=== PATIENT | female | born 1955 | race Caucasian/White ===

== ENCOUNTER 2019-12-25 06:45 | Inpatient (IN) ==
--- NOTE | 2019-11-20 15:13 | PAT Medication Instructions ---
Medication Instructions Date of Service November 20, 2019 Home Medications Medication Instructions Recorded albuterol sulfate 90 mcg/actuation 2 puffs INHALATION Q4H PRN #18 gm 08/22/19 aerosol inhaler calcium carbonate 500 mg calcium (1,250 mg) tablet 1,250 mg PO QAM cetirizine 10 mg tablet 10 mg PO QAM chlorthalidone 25 mg tablet 25 mg PO QAM cyanocobalamin (vitamin B-12) 500 mcg tablet 500 mcg PO QAM fluticasone furoate 200 mcg-vilanterol 25 mcg/dose inhalation powder 1 puffs INHALATION DAILY fluticasone propionate 50 mcg/actuation nasal spray,suspension 2 sprays INTRANASAL DAILY ipratropium 0.5 mg-albuterol 3 mg (2.5 mg base)/3 mL nebulization soln 1 ml INHALATION Q6H PRN levothyroxine 88 mcg tablet 88 mcg PO QAM losartan 100 mg tablet 100 mg PO QAM magnesium oxide 400 mg PO QAM multivitamin 1 tab PO DAILY simvastatin 40 mg tablet 40 mg PO QAM tiotropium bromide 18 mcg capsule with inhalation device 1 cap INHALATION DAILY amlodipine 5 mg tablet 5 mg PO QAM clindamycin HCl 300 mg capsule 300 mg PO UD cyclosporine 0.05 % eye drops in a dropperette 1 drops OP Q12H linagliptin 5 mg tablet 5 mg PO QAM omalizumab 150 mg subcutaneous solution 150 mg SQ MONTHLY omeprazole 20 mg capsule,delayed release 20 mg PO QAM albuterol sulfate 90 mcg/actuation aerosol inhaler 2 puffs INHALATION Q4H PRN insulin glargine U-300 conc [[place] SoloStar U-300 Insulin] 55 unit SUBCUT HS metformin 1,000 mg PO BID Continue as directed clindamycin HCl 300 mg capsule 300 mg PO UD (if needed prior to dental appointments) ASK your prescriber and surgeon omalizumab 150 mg subcutaneous solution 150 mg SQ MONTHLY DO NOT take the morning of surgery calcium carbonate 500 mg calcium (1,250 mg) tablet 1,250 mg PO QAM cetirizine 10 mg tablet 10 mg PO QAM chlorthalidone 25 mg tablet 25 mg PO QAM cyanocobalamin (vitamin B-12) 500 mcg tablet 500 mcg PO QAM losartan 100 mg tablet 100 mg PO QAM magnesium oxide 400 mg PO QAM multivitamin 1 tab PO DAILY linagliptin 5 mg tablet 5 mg PO QAM metformin 1,000 mg PO BID Take morning of surgery With a small sip of water, OTHERWISE NOTHING TO EAT OR DRINK AFTER MIDNIGHT: fluticasone furoate 200 mcg-vilanterol 25 mcg/dose inhalation powder 1 puffs INHALATION DAILY fluticasone propionate 50 mcg/actuation nasal spray,suspension 2 sprays INTRANASAL DAILY ipratropium 0.5 mg-albuterol 3 mg (2.5 mg base)/3 mL nebulization soln 1 ml INHALATION Q6H PRN (if needed) levothyroxine 88 mcg tablet 88 mcg PO QAM simvastatin 40 mg tablet 40 mg PO QAM tiotropium bromide 18 mcg capsule with inhalation device 1 cap INHALATION DAILY amlodipine 5 mg tablet 5 mg PO QAM cyclosporine 0.05 % eye drops in a dropperette 1 drops OP Q12H omeprazole 20 mg capsule,delayed release 20 mg PO QAM albuterol sulfate 90 mcg/actuation aerosol inhaler 2 puffs INHALATION Q4H PRN (use if needed; please bring with you to hospital day of surgery if possible) Take evening before surgery ipratropium 0.5 mg-albuterol 3 mg (2.5 mg base)/3 mL nebulization soln 1 ml INHALATION Q6H PRN (if needed) cyclosporine 0.05 % eye drops in a dropperette 1 drops OP Q12H albuterol sulfate 90 mcg/actuation aerosol inhaler 2 puffs INHALATION Q4H PRN (if needed) insulin glargine U-300 conc [[place] SoloStar U-300 Insulin] 55 unit SUBCUT HS metformin 1,000 mg PO BID Other Notes If you have any questions please call us at [phone] or [phone] or [phone] or [phone]
--- NOTE | 2019-11-22 10:23 | Anesthesiology Consultation ---
Date of Service November 22, 2019 Assessment & Plan (1) Encounter for pre-operative examination: - Patient seeing PCP prior to surgery. Awaiting office visit note ([facility]). - Per assessment on 11/20: Travel screen negative. No known COVID-19 positive contacts or current COVID-19 related symptoms. Surgeon arranging preop COVID testing. Awaiting results. - Check [facility] AM DOS Chart Review Chart Review: Patient seen in Pre Admission Testing Teaching & Discussion Pre-Anesthesia Teaching/Discussion Notes: Instructed NPO after midnight before surgery,except medications with 15 cc of water. Medication instructions provided according to the PAT guidelines. History Surgery Operation Date: 12/25/19 14:05 Proposed Procedures p Right Reversed Total Shoulder Arthroplasty - Torsten Parrish MD Height/Weight Height: 4 ft 11 in Weight: 77.7 kg Allergies Allergy/AdvReac Type Severity Reaction Status Date / Time codeine Allergy Mild Rash Verified 11/19/19 11:33 Penicillins Allergy Unknown Rash Verified 11/22/19 10:23 Sulfa (Sulfonamide Allergy Unknown Mouth Verified 11/22/19 10:23 Antibiotics) blisters Medications Home Medications Medication Instructions Recorded Confirmed Last Taken calcium carbonate 500 mg calcium 1,250 mg PO QAM tab 11/11/18 11/19/19 Unknown (1,250 mg) tablet cetirizine 10 mg tablet 10 mg PO QAM tab 11/11/18 11/19/19 Unknown chlorthalidone 25 mg tablet 25 mg PO QAM #90 tab 11/11/18 11/19/19 Unknown cyanocobalamin (vitamin B-12) 500 500 mcg PO QAM tab 11/11/18 11/19/19 Unknown mcg tablet fluticasone furoate 200 1 puffs INHALATION DAILY ea 11/11/18 11/19/19 Unknown mcg-vilanterol 25 mcg/dose inhalation powder fluticasone propionate 50 2 sprays INTRANASAL DAILY gm 11/11/18 11/19/19 Un known mcg/actuation nasal spray,suspension ipratropium 0.5 mg-albuterol 3 mg 1 ml INHALATION Q6H PRN ml 11/11/18 11/19/19 Unknown (2.5 mg base)/3 mL nebulization soln levothyroxine 88 mcg tablet 88 mcg PO QAM #90 tab 11/11/18 11/19/19 Unknown losartan 100 mg tablet 100 mg PO QAM #90 tab 11/11/18 11/19/19 Unknown magnesium oxide 400 mg PO QAM cap 11/11/18 11/19/19 Unknown multivitamin 1 tab PO DAILY 11/11/18 11/19/19 Unknown simvastatin 40 mg tablet 40 mg PO QAM #90 tab 11/11/18 11/19/19 Unknown tiotropium bromide 18 mcg capsule 1 cap INHALATION DAILY #90 puffs 11/11/18 11/19/19 Unknown with inhalation device amlodipine 5 mg tablet 5 mg PO QAM 12/05/18 11/19/19 Unknown clindamycin HCl 300 mg capsule 300 mg PO UD 12/05/18 11/19/19 Unknown cyclosporine 0.05 % eye drops in a 1 drops OP Q12H 12/05/18 11/19/19 Unknown dropperette linagliptin 5 mg tablet 5 mg PO QAM 12/05/18 11/19/19 Unknown omalizumab 150 mg subcutaneous 150 mg SQ MONTHLY ea 12/05/18 11/19/19 Unknown solution omeprazole 20 mg capsule,delayed 20 mg PO QAM 12/05/18 11/19/19 Unknown release albuterol sulfate 90 mcg/actuation 2 puffs INHALATION Q4H PRN #18 gm 08/22/19 11/19/19 Unknown aerosol inhaler insulin glargine U-300 conc 55 unit SUBCUT HS 11/19/19 11/19/19 Unknown [[place] SoloStar U-300 Insulin] metformin 1,000 mg PO BID 11/19/19 11/19/19 Unknown Past Medical History Medical History Allergic rhinitis Arthritis Chronic obstructive pulmonary disease stable Diabetes mellitus IDDM GERD (gastroesophageal reflux disease) Hyperlipidemia Hypertension Hypothyroidism Osteoarthritis Exercise / Class Metabolic Activity III < 4 Walking/Shop/Light housework Past Family History Family History Brother CHF (congestive heart failure) Mother Breast cancer Other COPD (chronic obstructive pulmonary disease) Cancer Past Surgical History Surgical History H/O arthroscopic knee surgery R/L History of breast surgery 1979 (fatty tumor excision) History of bunionectomy of left great toe with hammer toe repair History of carpal tunnel surgery left History of cataract surgery right and left History of knee replacement procedure of left knee History of knee replacement procedure of right knee History of tubal ligation Past Anesthesia History No Hx of Anesthesia Complications and No Family Hx of Anesthesia Complications History of PONV No Hx of PONV and No Hx of Motion Sickness Social History Smoking Status: Current every day smoker tobacco type: cigarettes Smoking cigarettes per day: has been tapering down use (on chantix), <1/2 PPD currently Do You Dip or Chew Tobacco: No Hx Alcohol Use: No Hx Substance Use: No substance use type: does not use Review of Systems Breathing is stable/baseline in regards to COPD. Rare wheezing. Patient denies chest pain, shortness of breath, fever, chills, cough, palpitations. Physical Exam Vital Signs VITALS BP 115/72 P 86 TEMP 98.2 SP02 98%RA RESP 16 PHYSICAL Full neck and c-spine range of motion. Full TMJ range of motion. TMD 3 finger breaths Mallampati Score 3 Dentition: upper full dentures, lower partial, possible dental extractions on lower teeth prior to surgery (patient advised to contact surgeon if dental work being done prior to surgery) Lungs: clear throughout to auscultation Cardiac: regular rate and rhythm, no murmurs noted Spine: normal Carotid arteries: negative bruit Extremities: no edema Testing Laboratory Results 11/22/19 10:59 11/22/19 10:59 PT 10.5 Seconds (9.0-12.0) 11/22/19 10:59 INR 1.0 (0.9-1.1) 11/22/19 10:59 APTT 28.7 Seconds (21.0-31.0) 11/22/19 10:59 Hemoglobin A1c 6.6 % (4.5-5.6) H 11/22/19 10:59 Urine Color Yellow 11/22/19 10:59 Urine Appearance Clear (Clear) 11/22/19 10:59 Urine pH 6.0 (4.5-7.5) 11/22/19 10:59 Ur Specific Newman 1.014 (1.000-1.030) 11/22/19 10:59 Urine Protein Negative (Negative) 11/22/19 10:59 Urine Glucose (UA) Negative (Negative) 11/22/19 10:59 Urine Ketones Negative (Negative) 11/22/19 10:59 Urine Nitrite Negative (Negative) 11/22/19 10:59 Ur Leukocyte Esterase Trace (Negative) H 11/22/19 10:59 Urine WBC (Auto) 1-5 /hpf (0-5) 11/22/19 10:59 Urine RBC (Auto) 0-4 /hpf (0-4) 11/22/19 10:59 U Hyaline Cast (Auto) 0 /lpf (0-5) 11/22/19 10:59 U Epithel Cells (Auto) 10-20 /lpf (0-5) H 11/22/19 10:59 Urine Bacteria (Auto) Negative (Negative) 11/22/19 10:59 Blood Type O Negative 11/22/19 10:59 Antibody Screen POSITIVE A 11/22/19 10:59 Amanda at blood bank aware of positive antibodies. She states nothing further needed from PAT perspective. Electrocardiogram Date: 11/22/19 Findings: + NSR @ (73) Chest X-Ray Date: 11/22/19 FINDINGS: The cardiac and mediastinal contours are normal. There is no evidence of focal pulmonary consolidation. There is no evidence of failure. No pleural effusions are visualized.[Degenerative changes are present within the cervical spine. A small surgical clip projects over the lower thoracic spinal canal. There are chronic left-sided rib deformities, possibly postsurgical. IMPRESSION: No active disease in the chest.
--- NOTE | 2019-11-22 11:26 | XRay Report ---
XR chest Pre-admission PA/Lat CLINICAL HISTORY: Preoperative chest COMPARISON STUDY: 11/29 2013 FINDINGS: The cardiac and mediastinal contours are normal. There is no evidence of focal pulmonary co nsolidation. There is no evidence of failure. No pleural effusions are visualized.[Degenerative busch es are present within the cervical spine. A small surgical clip projects over the lower thoracic spin al canal. There are chronic left-sided rib deformities, possibly postsurgical. IMPRESSION: No active disease in the chest. ACT 112: Negative or not required by law. Electronically signed by: Nacho Molina M.D. 11/22/2019 11:25 AM
[2019-11-22 12:03] LABS: Basophils # (auto) 0.04 K/uL (0-0.2); Basophils % (auto) 0.4 %; Eosinophils # (auto) 0.22 K/uL (0-0.5); Eosinophils % (auto) 2.3 %; Hematocrit (blood only) 41.9 % (37-47); Hemoglobin 13.4 g/dL (12.0-16.0); Immature Granulocytes # (auto) 0.05 K/uL (0.00-0.02); Immature Granulocytes % (auto) 0.5 %; Lymphocytes # (auto) 1.67 K/uL (1.2-3.4); Lymphocytes % (auto) 17.5 %; Mean Corpuscular Hemoglobin 28.3 pg (25-34); Mean Corpuscular Volume 88.4 fL (80-100); Mean Platelet Volume 10.8 fL (7.4-10.4); Monocytes % (auto) 6.3 %; Neutrophils # (auto) 6.99 K/uL (1.4-6.5); Platelet Count 408 K/uL (130-400); RDW Coefficient of Variation 14.2 % (11.5-14.5); RDW Standard Deviation 46.2 fL (36.4-46.3); Red Blood Count 4.74 M/uL (4.2-5.4); White Blood Count 9.57 K/uL (4.8-10.8)
[2019-11-22 12:11] LABS: Appearance Urine Clear (Clear); Bacteria Urine Automated Negative (Negative); Bilirubin Urine Negative (Negative); Blood Urine Negative (Negative); Cast Urine Automated 0 /lpf (0-5); Color Urine Yellow; Glucose Urine UA Negative (Negative); Ketones Urine Negative (Negative); Leukocyte Esterase Urine Trace (Negative); Nitrite Urine Negative (Negative); Protein Urine Negative (Negative); RBC Urine Automated 0-4 /hpf (0-4); Specific Gravity Urine 1.014 (1.000-1.030); Urobilinogen Urine Negative (Negative)
[2019-11-22 12:17] LABS: Partial Thromboplastin Time 28.7 Seconds (21.0-31.0); Prothrombin Time 10.5 Seconds (9.0-12.0)
[2019-11-22 12:23] LABS: Estimated Average Glucose 143 mg/dl; Hemoglobin A1C 6.6 % (4.5-5.6)
--- NOTE | 2019-11-22 12:48 | Electrocardiogram Report ---
Test Reason : Blood Pressure : / mmHG Vent. Rate : 073 BPM Atrial Rate : 073 BPM P-R Int : 144 ms QRS Dur : 088 ms QT Int : 398 ms P-R-T Axes : 063 048 040 degrees QTc Int : 438 ms Normal sinus rhythm Normal ECG When compared with ECG of 29-SEP-2011 12:26, Premature atrial complexes are no longer Present Confirmed by Ismael Leyva ([id number]) on 11/22/2019 12:48:23 PM Referred By: Torsten Parrish Confirmed By:Rodney Leyva
[2019-11-22 13:47] LABS: Albumin Level 4.1 gm/dl (3.4-5.0); BUN Creatinine Ratio 15.3 (10-20); Calcium 9.5 mg/dl (8.5-10.1); Creatinine Clr Calc Pharmacy 39.5 ml/min; Est GFR (African American) 51.4; Est GFR (Non-African American) 44.4; Potassium 3.6 mmol/L (3.5-5.1)
--- NOTE | 2019-12-24 19:47 | History and Physical Report ---
DATE OF ADMISSION: 12/25/2019 CHIEF COMPLAINT: Right shoulder pain. HISTORY OF PRESENT ILLNESS: This is a 64-year-old female patient of Dr. Parrish'marion complaining of chronic right shoulder pain, longstanding, now progressively getting worse. The patient has failed conservative treatment and she has been diagnosed with rotator cuff arthropathy and wishes to proceed with a right reverse total shoulder arthroplasty. PAST MEDICAL HISTORY: Hypertension, hypercholesterolemia, asthma, COPD, peripheral neuropathy, diabetes mellitus with insulin, hypothyroidism, osteoarthritis, neck problems, acid reflux, obesity, dental issues. SOCIAL HISTORY: Nonsmoker and nondrinker. PAST SURGICAL HISTORY: Left foot surgery. FAMILY HISTORY: Noncontributory. REVIEW OF SYSTEMS: Chronic right shoulder pain and weakness. Otherwise, denies any shortness of breath, chest pain, nausea, vomiting or any other joint complaints. MEDICATIONS: 1. Amlodipine 10 mg daily. 2. Cetirizine 10 mg daily. 3. Chlorthalidone 25 mg daily. 4. Clonidine 0.1 mg twice daily as needed. 5. Dulera 2 puffs twice daily in the morning and evening. 6. Nebulizer 0.5 mg as needed 4 times daily. 7. Omeprazole 40 mg daily. 8. Fluticasone 50 mcg actuation 1 spray in each nostril daily. 9. Hydrochlorothiazide 25 mg daily. 10. Levoxyl 100 mcg daily. 11. Losartan 100 mg daily. 12. Magnesium oxide 400 mg tablet daily. 13. Multivitamin daily. 14. Qvar 80 mcg actuation inhaler 2 puffs twice daily. 15. Ranitidine 150 mg twice daily. 16. Spiriva inhaler 18 mcg inhalation as needed daily. 17. Tradjenta 5 mg daily. 18. Vitamin B12 daily. 17. Xolair 150 mg subQ every 2 weeks. 18. Zocor 40 mg daily. 19. Sliding scale insulin as needed. 20. Percocet 5/325 as needed. ALLERGIES: No known drug allergies. PHYSICAL EXAMINATION: GENERAL: Well-developed, well-nourished 64-year-old female in no acute distress. She is alert and oriented x3 and pleasant. HEENT: Normocephalic, atraumatic. Extraocular motions are intact. Pupils are equal and reactive to light. HEART: Regular rate and rhythm, no murmurs. LUNGS: Clear. ABDOMEN: Soft, nontender, bowel sounds present. EXTREMITIES: Right shoulder, 3/5 strength globally. Neurologically and neurovascularly intact. Active range of motion to 90 degrees, passively to 180 with crepitation and pain. DIAGNOSES: Right shoulder rotator cuff arthropathy, hypertension, hypercholesterolemia, asthma, chronic obstructive pulmonary disease, peripheral neuropathy, diabetes mellitus with insulin, hypothyroidism, osteoarthritis, back problems, acid reflux, obesity, dental issues. PLAN: The patient was advised of her diagnosis. Indications, risks, benefits, postop course have all been reviewed. The patient wished to proceed with a right reverse total shoulder arthroplasty. Necessary consent forms, preoperative testing and clearances will be obtained. ROSCOE
[~2019-12-25 06:45] MED LIST: ACETAMINOPHEN 500 MG TAB PO SCH; FAMOTIDINE 20 MG TAB PO SCH; GABAPENTIN 300 MG CAP PO SCH; LR 15ML/HR IV SCH; LR 500ML BOLUS IV SCH; METOCLOPRAMIDE HCL 10 MG TABLET PO SCH; VANCOMYCIN HCL 1,250 MG in SODIUM CHLORIDE 0.9% 250 ML IV SCH; dexAMETHasone 4 MG TAB PO SCH
[2019-12-25] MEDS ORDERED: ROPIVACAINE 0.5% 5 MG/ML 30 ML VIAL ONE (07:35)
[2019-12-25] MEDS ORDERED: fentaNYL citrate 100 MCG/2 ML VIAL ONE (08:13)
[2019-12-25] MEDS ORDERED: MIDAZOLAM HCL 1 MG/ML 2ML VIAL ONE (08:13)
[2019-12-25] MEDS ORDERED: PROPOFOL IV EMULSION 10 MG/ML 20 ML VIAL IV ONE (08:13)
[2019-12-25] MEDS ORDERED: LIDOCAINE HCL 2% 2 ML VIAL/AMP(20MG/ML) INFIL ONE (08:13)
[2019-12-25] MEDS ORDERED: ONDANSETRON INJ 2 MG/ML 2 ML VIAL IV PRN ×2 (09:05→14:30)
[2019-12-25] MEDS ORDERED: ePHEDrine sulfate 50 MG/ML AMP IV PRN (09:05)
[2019-12-25] MEDS ORDERED: ALBUT/IPRATROP 3MG/0.5MG NEB 3 ML VIAL NEB STA ×2 (09:05→15:30)
[2019-12-25] MEDS ORDERED: ATROPINE SULFATE 0.1 MG/ML 10ML SYR IV PRN (09:05)
[2019-12-25] MEDS ORDERED: fentaNYL citrate 100 MCG/2 ML VIAL IV PRN (09:05)
[2019-12-25] MEDS ORDERED: ALBUT/IPRATROP 3MG/0.5MG NEB 3 ML VIAL ONE (09:16)
--- NOTE | 2019-12-25 09:21 | History & Physical Bridge Note ---
Date of Service December 25, 2019 History & Physical Bridge Note I have examined the patient, reviewed the History & Physical and in the interval since the performance of the History & Physical I have noted the following changes of clinical significance: no changes noted
[2019-12-25] MEDS ORDERED: BACITRACIN INJ 50,000 UNIT VIAL ONE (09:29)
[2019-12-25] MEDS ORDERED: ONDANSETRON INJ 2 MG/ML 2 ML VIAL ONE (10:41)
[2019-12-25] MEDS ORDERED: PHENYLEPHRINE 100MCG/ML 5ML SYR ONE (10:41)
[2019-12-25] MEDS ORDERED: GLYCOPYRROLATE 0.2 MG/ML VIAL ONE (10:42)
[2019-12-25] MEDS ORDERED: NEOSTIGMINE METHYLSULFATE 5 MG/5 ML SYR ONE (10:42)
[2019-12-25] MEDS ORDERED: ROCURONIUM BROMIDE 10 MG/ML 5 ML VIAL IV ONE (10:42)
--- NOTE | 2019-12-25 12:59 | Post Operative Brief Note ---
Immediate Post Op Note v1 Date of Surgery December 25, 2019 Pre & Post Diagnosis Operation Date: 12/25/19 09:00 Pre-Op Diagnosis: Right Shoulder Rotator Cuff Arthropathy Post-Op Diagnosis: Right Shoulder Rotator Cuff Arthropathy, proximal biceps rupture biceps tendinopathy I identified the patient and participated in the time-out.: Yes Procedure Operation Date: 12/25/19 09:00 Actual Procedures: Right Reversed Total Shoulder Arthroplasty, biceps tenodesis- Torsten Parrish MD Surgeon Torsten Parrish MD Claims Adjudicator NEGRITA Bernard Estimated Blood Loss 50 Findings Consistent with Post-Op Diagnosis Specimens Humeral head Drains Hemovac Drain Anesthesia Type General Regional Complications none Disposition Accompanied Patient To Recovery: No Disposition: Recovery Room Overlapping Procedure I was immediately available: during the entire case.
--- NOTE | 2019-12-25 13:25 | Operative Report ---
Post Operative Report Pre & Post Diagnosis Operation Date: 12/25/19 09:00 Pre-Op Diagnosis: Right Shoulder Rotator Cuff Arthropathy, multiple osteochondromatosis Post-Op Diagnosis: Right Shoulder Rotator Cuff Arthropathy, multiple osteochondromatosis, proximal biceps rupture biceps tendinopathy I identified the patient and participated in the time-out.: Yes Procedure Operation Date: 12/25/19 09:00 Actual Procedures Right Reversed Total Shoulder Arthroplasty, biceps tenodesis- Torsten Parrish MD Surgeon Torsten Parrish MD Sloop Captain NEGRITA Bernard Estimated Blood Loss 50 Findings Consistent with Post-Op Diagnosis Specimens Humeral head Drains 2 Hemovac Anesthesia Type General Regional Complications none Disposition Accompanied Patient To Recovery: No Indications 64-year-old female with multiple osteochondromatosis multiple arthritic joints including the right shoulder which also has a large rotator cuff tear proximal migration humerus as well as bone loss of the glenoid superiorly, posteriorly and undersurface acromial [id number] wear. Patient has failed conservative management. Description of Procedure The patient was taken to the operating room and anesthetized under regional block and general anesthetic. The patient was positioned on the operating table in a 30 beachchair position with a towel roll under the medial border of the right scapula. The arm was draped free to be able to manipulate the shoulder as needed. The right upper extremity was prepped and draped in usual sterile fashion. Exam demonstrated moderate obesity with forward flexion 170 degrees abduction 100 degrees external rotation 80 degrees. ( Preop examined holding area demonstrated 120 degrees active forward elevation 80 degrees abduction and 80 degrees external rotation. Obvious rotator cuff weakness.) An anterior deltopectoral approach was performed. A longitudinal incision was made in the deltopectoral interval. The skin was incised sharply. Subcutaneous flaps were elevated off the fascia. The cephalic vein was dissected out and retracted lateral with the deltoid. The clavipectoral fascia was divided at the lateral margin of the conjoined tendon and extended up to the CA ligament. The following findings were noted: There was chronic thickened bursa over the subscapularis tendon which was thin and had tendinopathy. The supraspinatus and infraspinatus were torn and retracted and was a large bursal sac with abundant fluid. The biceps tendon at torn proximally with there was a redundant piece of tendon tissue in the bicipital groove attached to chronic tenosynovium that was scarred down to the tendon. There were bone spurs over the greater tuberosity and lesser tuberosity and some anterior and anterior lateral acromial spurs on the undersurface of the acromion process.. The upper centimeter of the pectoralis was released for inferior exposure. The biceps tendon was freed up from the surrounding chronic tenosynovium and the tenosynovium was resected. I was able to mobilize the biceps so that could be retracted proximally and tenodesed to the pectoralis tendon. The biceps tendon was tenodesed to the pectoralis tendon with #2 FiberWire. The proximal biceps was resected. The subscapularis tendon was taken down off the lesser tuberosity using a subperiosteal dissection. A #1 Vicryl traction suture was placed into the free end of the subscapularis tendon and capsule. The subscapular muscle fibers were split longitudinally at the level of the circumflex vessels. The circumflex vessels were identified and tied off with silk ties and divided laterally. A Kitner elevator was used to free up the inferior fibers of the subscapularis off of the capsule. The axillary nerve was identified with a tug test and protected with a blunt Maldonado retractor between the nerve and the capsule. A subperiosteal dissection was performed along the neck of the humerus as the arm was gradually externally rotated exposing the humeral head. There were no major inferior osteophytes that had to be resected. A Rice elevator was used to assist in releasing the capsule of the neck of the humerus. The capsule was divided with Bray scissors down to the glenoid released off the anterior glenoid and the rotator interval was released to meet the capsular release and a 360 release of the subscapularis was accomplished. Humeral head was completely exposed bone in the central to superior region with the some surrounding gradual chondromalacia and some osteophytes more along the greater and lesser tuberosity areas. A Fukuda retractor was placed into the joint retracting the humeral head posterior. Glenoid findings demonstrated grade 4 glenoid wear with bone loss superior to posterior superior with resultant superior inclination of the glenoid and medialization of the center of rotation due to bone loss.. The labrum was resected. an anterior-inferior and posterior inferior capsular release were performed with electrocautery and a Rice elevator on bone with the axillary nerve protected inferiorly by the retractor. Attention was then taken to the humeral preparation. The cutting guide was placed into the humeral head. It was positioned at 20 of retroversion. Oscillating saw was used to resect the humeral head giving the cut above the level of the posterior rotator cuff insertion site. There is a large cyst in the cancellous bone in the central region extending into the greater tuberosity region. This appeared to be benign degenerative cyst and was curetted out. The humerus was then prepared for the stem. I used the ascend flex stem from [employer]. The sizing broaches were used followed by trial broaches up to a size 2B long which had the appropriate fit and fill. The appropriate sized cut protector was placed. The humerus was then retracted posterior to the glenoid. The glenoid was sized for a 15 degree full wedge 25 mm perform glenoid based on blueprint CT scan guided preop templating with a custom guide created for pin placement.. The PSI guide was positioned and the central drill hole was made. The initial central reamer was used followed by the 15 degree angled reamer which was positioned posterior superior at the area of the most significant bone loss. Reaming was performed to I had full contact. There was some subchondral cysts that were curetted out. The reamer for the central boss was used. The depth gauge was used to measure for the central screw. A tap was used. Bone grafting humeral head was placed into the cystic areas on the glenoid and superiorly between the maximum wedge and the superior area of maximum bone loss to enhance good solid contact. The 25 mm 15 degree full wedge performed baseplate with a 30 mm by 6.5 central screw baseplate was screwed into position placed in the wedge in the superior to posterior position.. The base plate was transfixed with a compression screw superiorly followed by inferior anterior and posterior locking screws. The fan reamer was was not needed due to the lateral offset of the wedge. After irrigation the 39 standard Tornier glenoid sphere was impacted onto the basep late and the security screw was tightened. Attention was taken back to the humerus. The cut protector was removed and the +0 high offset humeral tray trial was assembled to the trial stem rotated appropriately to get bony coverage and then screwed in position. A trial reduction was performed. A 39+6 reversed trial insert demonstrated good stability and no shuck. I did have to trim some spurs off the greater tuberosity and remove the spurs on the undersurface the acromion 7 the arm was in 90 degrees of abduction and with internal and external rotation there was no greater tuberosity impingement on the acromion. The trials were removed. 3 drill holes are made into the harder bone in the bicipital groove area and 3 #5 FiberWire sutures were placed transosseously. The canal was irrigated with antibiotic solution with bacitracin. The final component was assembled. The final component was the Tornier 2B long ascend flex stem assembled to the plus 0 high offset tray and a 39, +6 reversed insert polyethylene. After irrigation of the canal, the cyst areas were bone grafted from bone graft from the humeral head and the stem was inserted partially and more bone graft was placed around the stem after which it was then impacted into the humerus with a tight press-fit. It was reduced to the glenoid sphere. Stability was verified. Subscapularis was repaired with the #5 FiberWire sutures using Cristhian-Qasim suture technique. Lateral row soft tissue repair was performed with #2 FiberWire [id number] sutures. The pectoralis was repaired with #2 FiberWire [id number] sutures reinforcing the biceps tendon tenodesis. The arm was taken through a range of motion which demonstrated 150 degrees forward elevation 100 degrees abduction external rotation 50 degrees without tension on subscap repair. The implant was stable through the range of motion tested. The wound was copiously irrigated. 2 Hemovac drains were placed. The deltopectoral interval was closed with [id number] #1 Vicryl sutures. The subcutaneous tissues were closed with 2-0 Vicryl sutures. The skin was closed with juwan. Sterile dressings were applied and a shoulder immobilizer. NEGRITA Bernard my physician press operator assistant assisted in the procedure to the entire procedure including patient positioning arm positioning prepping and draping soft tissue retraction instrument management suture management and performed the subcutaneous and skin closure and will participate in the postoperative care of the patient. I attest to the content of the Intraoperative Record and any orders documented therein. Any exceptions are noted below.
--- NOTE | 2019-12-25 13:49 | Anesthesiology Progress Note ---
Date of Service December 25, 2019 Anesthesia Post Procedure Vital Signs Vital Signs: Temp Pulse Pulse Resp BP Pulse Ox 12/25/19 13:25 92 H 15 126/72 95 12/25/19 13:15 96 H 18 125/66 99 12/25/19 13:06 36.5 C 100 H 20 133/72 99 12/25/19 09:21 83 16 96 12/25/19 07:58 36.7 C 78 18 116/61 95 12/25/19 07:24 37.1 C 80 18 140/86 96 Pain Intensity Right Shoulder: Pain Intensity: 6 Transfer of Care Handoff Completed per policy Notes Mental Status: alert / awake / arousable and participated in evaluation Patient Amnestic to Procedure: Yes Nausea / Vomiting: adequately controlled Pain: adequately controlled Airway Patency, RR, SpO2: stable & adequate BP & HR: stable & adequate Hydration State: stable & adequate Anesthetic Complications: no major complications apparent and Pt Satisfied with anesthetic care Notes:
--- NOTE | 2019-12-25 14:10 | XRay Report ---
XR shoulder RT min 2V routine HISTORY: 64 years-old Female Post shoulder surgery right shoulder surgery COMPARISON: Chest radiograph 03/01/2013 TECHNIQUE: 2 views of the right shoulder FINDINGS: Reverse right shoulder total joint arthroplasty demonstrates satisfactory alignment without acute fra cture or unexpected opaque foreign body. Overlying skin juwan are noted along with expected postsur gical soft tissue swelling and deep tissue air. Surgical drainage catheter also noted. Cortical thick ening of the mid shaft right humerus suggests healed remote fracture deformity. IMPRESSION: Reverse right shoulder total joint arthroplasty with expected postoperative changes. ACT 112: Negative or not required by law. The above report was generated using voice recognition software. It may contain grammatical, syntax o r spelling errors. Electronically signed by: Yassine Sheridan M.D. 12/25/2019 2:08 PM
[2019-12-25] MEDS ORDERED: diphenhydrAMINE Capsule 25 MG CAP PO PRN (14:30)
[2019-12-25] MEDS ORDERED: ALBUTEROL HFA 8 GM INHALER INH PRN (14:30)
[2019-12-25] MEDS ORDERED: MAGNESIUM HYDROXIDE SUSP 30 ML UDC PO PRN (14:30)
[2019-12-25] MEDS ORDERED: HYDROmorphone INJ 0.5 MG/0.5 ML SYR IV PRN (14:30)
[2019-12-25] MEDS ORDERED: OMALIZUMAB 150 MG SQ SCH (14:30)
[2019-12-25] MEDS ORDERED: bisacodyL 10 MG SUPP PR PRN (14:30)
[2019-12-25] MEDS ORDERED: VANCOMYCIN CONSULT ACTIVE PRN (14:30)
[2019-12-25] MEDS ORDERED: NALOXONE HCL 0.4 MG/1 ML VIAL/CARP IV PRN (14:30)
[2019-12-25] MEDS ORDERED: PHARMACY GLYCEMIC MGMT CONSULT PRN (14:34)
--- NOTE | 2019-12-25 15:00 | Pharmacy Report ---
Glycemic Control Consultation - Date of Service December 25, 2019 - Scope Scope: Glycemic Pharmacist consulted for glycemic control and to write orders per [facility] inpatient glycemic control protocol. - Objective Weight: 75.353 kg Accuchecks BSG (last 24hrs): 12/25/19 12/25/19 07:04 13:08 POC Glucose 94 158 H HbA1c: Hemoglobin A1c 6.6 % (4.5-5.6) H 11/22/19 10:59 - Recent Pertinent Medications Outpatient Anti-diabetic Regimen: * Toujeo, linagliptan, metformin * A1c = 6.6 % 11/22/19 Risk Factors for Insulin Resistance: * Steroids: dxm 8 po * Recent Surgery: POD 0 * Diet: yes - Assessment & Plan Assessment & Plan: ASSESSMENT: * 64 year old female now s/p R shoulder arthroplasty, POD 0. Pharmacy consulted for glycemic control * Patient received steroids preop, therefore anticipate steroid induced hyperglycemia. Diet started postop. Plan to start novolog based upon basal needs of insulin at home. PLAN FOR INPATIENT GLYCEMIC CONTROL: * Holding outpatient oral diabetes medications * Basal insulin * Lantus 55 units HS * Bolus insulin * NovoLog per scale ACHS or Q6hrs while NPO * Goal Range: Low 110 mg/dL - High 140 mg/dL * Correction Factor: 15 mg/dL/unit * Nutritional / Prandial insulin per carb ratio of 1 unit per 6 grams CHO consumed * Please note that the plan above was derived based on current level of insulin resistance and hospital stress. These recommendations are appropriate for inpatient admission only. Plan of care upon discharge will need to be reassessed to avoid potential outpatient hypo/hyperglycemia. Thank you.
[2019-12-25] MEDS ORDERED: GLUCOSE 40% GEL 15 GM TUBE PO PRN (15:15)
[2019-12-25] MEDS ORDERED: GLUCAGON FOR INJ 1 MG VIAL IM PRN (15:15)
[2019-12-25] MEDS ORDERED: GLUCOSE 10 TABS/TUBE PO PRN (15:15)
[2019-12-25] MEDS ORDERED: CARBOHYDRATES FOR HYPOGLYCEMIA PO PRN (15:15)
[2019-12-25] MEDS ORDERED: INSULIN ASPART 100 UNITS/ML 3 ML PEN SC ONE (15:15)
[2019-12-25] MEDS ORDERED: DEXTROSE 50% 50 ML SYRINGE IV PRN (15:15)
[2019-12-25] MEDS: ACETAMINOPHEN 500 MG TAB PO SCH ×2 (15:28→21:34)
[2019-12-25] MEDS: SODIUM CHLORIDE 0.9% 1000ML 1,000 ML IV SCH (15:28)
[2019-12-25] MEDS ORDERED: ALBUT/IPRATROP 3MG/0.5MG NEB 3 ML VIAL NEB PRN (15:30)
--- NOTE | 2019-12-25 15:33 | Hospitalist Consultation ---
Date of Consultation December 25, 2019 Assessment & Plan (1) Rotator cuff arthropathy of right shoulder: POD #0 s/p right reverse total shoulder arthroplasty with biceps tenodesis - Pain control, PT/OT, DVT prophylaxis per primary service - Encourage incentive spirometry (2) Hypothyroidism: - Continue outpatient levothyroxine (3) Hypertension: - Continue home regimen - currently well-controlled (4) Hyperlipidemia: - Continue outpatient statin therapy - clarified med rec (5) Allergic asthma: Receiving Xolair injections monthly with last dose ~1 month ago - pt reports scheduled for next dose later this month. Currently wheezing - will give DuoNeb stat and add prn nebs. If worsening, change to scheduled and check chest x-ray (6) GERD (gastroesophageal reflux disease): - Continue outpatient PPI therapy (7) Chronic obstructive pulmonary disease: - Continue outpatient inhalers - Nebs as discussed above (8) Diabetes mellitus: Pharmacy consulted for glycemic management Accuchecks - pt reports usually well-controlled with fasting glucose 70-100 Diabetic diet (9) CKD (chronic kidney disease) stage 3, GFR 30-59 ml/min: - Check AM labs Pt seen and reviewed with collaborating physician, Dr. Kwan. Plan of care discussed and as outlined above. We will continue to follow this patient with you. [facility] can be reached 05/09 at [phone]. Please do not hesitate to call with questions. Thank you for this consultation. Jarad Johnson PA-C Supervising Physician Co-Signing Physician Notes ATTENDING ADDENDUM : pt seen and examined, care co-ordinated with Ginny CROWDER 64 yo F underwent right shoulder surgery pain well controlled post op denies of any complain of cough , SOB , no fever or chills Physical Exam : ( Focused ) gen : no apparent distress HEENT : non icteric sclera EXT: right shoulder in sling , drain present Neuro : no focal deficit Lungs: CTA , no wheeze or rales A/P : S/P right shoulder surgery : cont management as per Ortho Type 2 DM : insulin SSI /added basal lantus please refer to further documentation by Ginny CROWDER for discussion of other chronic issues Rox Kwan MD History of Present Illness Reason for Consultation: Post-operative medical management Requesting Physician: Dr. Parrish Attending Physician: Torsten Parrish MD History of Present Illness This is a 64 y/o female with a PMH of IRDM, COPD, HTN, GERD, dyslipidemia, CKD3, hypothyroidism, and [place] who underwent right shoulder reverse total shoulder arthroplasty and biceps tenodesis today by Dr. Parrish. The pt reports currently feeling well without specific complaint other than a mild sore throat post-operatively and feeling off balance when she tries to get out of bed. No pain in right shoulder. Denies chest pain, palpitations, chest tightness, wheezing, dyspnea, N/V. Earlier headache has resolved. Occasional cough. Of note, her last dose of Xolair was one month ago. She would typically receive a dose this week but this has been delayed due to her surgery. She has not required prn DuoNebs since being on the Xolair. She does note a history of pneumonia several years ago that required a prolonged admission in [place] and "life support" for an unspecified period of time. Allergies Allergy/AdvReac Type Severity Reaction Status Date / Time codeine Allergy Mild Rash Verified 12/25/19 07:09 Penicillins Allergy Unknown Rash Verified 12/25/19 07:09 Sulfa (Sulfonamide Allergy Unknown Mouth Verified 12/25/19 07:09 Antibiotics) blisters Home Medications Home Medications Medication Instructions Recorded Confirmed Type calcium carbonate 500 mg calcium 1,250 mg PO QAM tab 11/11/18 12/25/19 History (1,250 mg) tablet cetirizine 10 mg tablet 10 mg PO QAM tab 11/11/18 12/25/19 History chlorthalidone 25 mg tablet 25 mg PO QAM #90 tab 11/11/18 12/25/19 History cyanocobalamin (vitamin B-12) 500 1,000 mcg PO QAM tab 11/11/18 12/25/19 History mcg tablet fluticasone furoate 200 1 puffs INHALATION DAILY ea 11/11/18 12/25/19 History mcg-vilanterol 25 mcg/dose inhalation powder fluticasone propionate 50 2 sprays INTRANASAL DAILY gm 11/11/18 12/25/19 History mcg/actuation nasal spray,suspension levothyroxine 88 mcg tablet 88 mcg PO QAM #90 tab 11/11/18 12/25/19 History losartan 100 mg tablet 100 mg PO QAM #90 tab 11/11/18 12/25/19 History magnesium oxide 400 mg PO QAM cap 11/11/18 12/25/19 History multivitamin 1 tab PO DAILY 11/11/18 12/25/19 History clindamycin HCl 300 mg capsule 300 mg PO UD 12/05/18 12/25/19 History cyclosporine 0.05 % eye drops in a 1 drops OP Q12H 12/05/18 12/25/19 History dropperette linagliptin 5 mg tablet 5 mg PO QAM 12/05/18 12/25/19 History omalizumab 150 mg subcutaneous 150 mg SQ MONTHLY ea 12/05/18 12/25/19 History solution omeprazole 20 mg capsule,delayed 20 mg PO BID 12/05/18 12/25/19 History release albuterol sulfate 90 mcg/actuation 2 puffs INHALATION Q4H PRN #18 gm 08/22/19 12/25/19 Rx aerosol inhaler insulin glargine U-300 conc 55 unit SUBCUT HS 11/19/19 12/25/19 History [Toujeo SoloStar U-300 Insulin] metformin 1,000 mg PO BID 11/19/19 12/25/19 History amlodipine 10 mg PO DAILY 12/25/19 12/25/19 History atorvastatin 40 mg PO DAILY 12/25/19 12/25/19 History tiotropium bromide [Spiriva with 1 cap INHALATION DAILY 12/25/19 12/25/19 History HandiHaler] Patient History Medical History (Updated 12/26/19 @ 10:02 by Leila Baugh PA-C) Allergic asthma Allergic rhinitis Arthritis Chronic obstructive pulmonary disease stable CKD (chronic kidney disease) stage 3, GFR 30-59 ml/min Diabetes mellitus IDDM GERD (gastroesophageal reflux disease) Hyperlipidemia Hypertension Hypothyroidism Osteoarthritis Surgical History H/O arthroscopic knee surgery R/L History of breast surgery 1979 (fatty tumor excision) History of bunionectomy of left great toe with hammer toe repair History of carpal tunnel surgery left History of cataract surgery right and left History of knee replacement procedure of left knee History of knee replacement procedure of right knee History of tubal ligation Family History Brother CHF (congestive heart failure) Mother Breast cancer Other COPD (chronic obstructive pulmonary disease) Cancer Social History Smoking Status: Former smoker Cigarettes Per Day: has been tapering down use (on chantix), <1/2 PPD currently; Second Hand Exposure: No; Do You Dip or Chew Tobacco: No; Tobacco Cessation Education Requested by Patient: No Hx Alcohol Use: No Hx Substance Use: No Preferred Language: Sudanese Communication Ability: Effective Boat Pilot Required: No Beliefs That Will Affect Care: None marital status: Single Current Living Situation: Alone current occupational status: retired Other Information That Helps Us Care for You: No Feels Safe at Home: Yes Safety Concerns: Feels Safe At This Time Assistive Devices: None Review of Systems Review of Systems: All systems reviewed & are unremarkable except as noted in HPI & below Constitutional: no fever, no chills and no fatigue Eyes: no diplopia and no worsening vision Ear, Nose, Mouth, Throat: + sore throat; no nasal congestion and no nasal discharge Respiratory: + cough; no dyspnea, no hemoptysis and no wheezing Cardiovascular: no chest pain, no palpitations, no syncope and no edema Gastrointestinal: no abdominal pain, no nausea, no vomiting and no diarrhea/loose stools Genitourinary: no dysuria, no urinary frequency and no hematuria Musculoskeletal: as per Subjective / HPI; no back pain and no neck pain Integumentary: no rash and no skin ulcer Neurologic: no falls, no seizure-like activity, no dizziness and no headache(s) Psychiatric: no depression and no anxiety Physical Exam Constitutional: WD/WN, vitals as above no acute distress Eyes: + anicteric sclerae; no conjunctival abnormality ENMT: external ear and nose normal, oropharynx normal Neck: trachea midline Respiratory: Auscultation: + wheezes (expiratory wheezes throughout); no crackles and no rhonchi Cardiovascular: Rate/Rhythm: regular rate and regular rhythm Heart Sounds: no gallop, no murmur and no cardiac rub Gastrointestinal (Abdomen): Inspection/Auscultation: normal bowel sounds; abdomen not distended Percussion/Palpation: abdomen soft; abdomen nontender Musculoskeletal: right shoulder with drain in place Skin: no rashes, warm and dry Neurologic: no focal motor deficits noted in lower extremities. Psychiatric: A+Ox3, euthymic affect Results & Data Results & Data ([facility]) Vital Signs (Past 12 Hours) Vital Signs Temp Pulse Pulse Resp BP Pulse Ox 12/25/19 14:42 98 H 16 126/74 94 12/25/19 14:15 36.9 C 89 16 112/68 95 12/25/19 13:45 36.4 C L 88 17 132/65 95 12/25/19 13:35 85 15 117/66 95 12/25/19 13:25 92 H 15 126/72 95 12/25/19 13:15 96 H 18 125/66 99 12/25/19 13:06 36.5 C 100 H 20 133/72 99 12/25/19 09:21 83 16 96 12/25/19 07:58 36.7 C 78 18 116/61 95 12/25/19 07:24 37.1 C 80 18 140/86 96 Laboratory Results Labs 11/22/19 11/22/19 11/22/19 10:59 10:59 10:59 WBC 9.57 RBC 4.74 Hgb 13.4 Hct 41.9 MCV 88.4 MCH 28.3 MCHC 32.0 RDW Std Deviation 46.2 RDW Coeff of Phuong 14.2 Plt Count 408 H MPV 10.8 H Immature Gran % (Auto) 0.5 Neut % (Auto) 73.0 Lymph % (Auto) 17.5 [place] % (Auto) 6.3 Eos % (Auto) 2.3 Baso % (Auto) 0.4 Neut # (Auto) 6.99 H Lymph # (Auto) 1.67 [place] # (Auto) 0.60 H Eos # (Auto) 0.22 Baso # (Auto) 0.04 Immature Gran # (Auto) 0.05 H PT 10.5 INR 1.0 APTT 28.7 PTT Ratio 1.0 Sodium Potassium Chloride Carbon Dioxide Anion Gap BUN Creatinine Est Cr Clr Drug Dosing Est GFR ( Amer) Est GFR (Non-Af Amer) BUN/Creatinine Ratio Glucose POC Glucose Estimat Average Glucose Hemoglobin A1c Calcium Albumin Urine Color Urine Appearance Urine pH Ur Specific [place] Urine Protein Urine Glucose (UA) Urine Ketones Urine Blood Urine Nitrite Urine Bilirubin Urine Urobilinogen Ur Leukocyte Esterase Urine WBC (Auto) Urine RBC (Auto) U Hyaline Cast (Auto) U Epithel Cells (Auto) Urine Bacteria (Auto) Blood Type O Negative Antibody Screen POSITIVE A Antibody Identification Anti-D Antibody ID Comment Crossmatch 11/22/19 11/22/19 11/22/19 10:59 10:59 10:59 WBC RBC Hgb Hct MCV MCH MCHC RDW Std Deviation RDW Coeff of Phuong Plt Count MPV Immature Gran % (Auto) Neut % (Auto) Lymph % (Auto) [place] % (Auto) Eos % (Auto) Baso % (Auto) Neut # (Auto) Lymph # (Auto) [place] # (Auto) Eos # (Auto) Baso # (Auto) Immature Gran # (Auto) PT INR APTT PTT Ratio Sodium 139 Potassium 3.6 Chloride 104 Carbon Dioxide 28 Anion Gap 7.0 BUN 19 H Creatinine 1.26 H Est Cr Clr Drug Dosing 39.5 Est GFR ( Amer) 51.4 Est GFR (Non-Af Amer) 44.4 BUN/Creatinine Ratio 15.3 Glucose 107 H POC Glucose Estimat Average Glucose 143 Hemoglobin A1c 6.6 H Calcium 9.5 Albumin 4.1 Urine Color Yellow Urine Appearance Clear Urine pH 6.0 Ur Specific [place] 1.014 Urine Protein Negative Urine Glucose (UA) Negative Urine Ketones Negative Urine Blood Negative Urine Nitrite Negative Urine Bilirubin Negative Urine Urobilinogen Negative Ur Leukocyte Esterase Trace H Urine WBC (Auto) 1-5 Urine RBC (Auto) 0-4 U Hyaline Cast (Auto) 0 U Epithel Cells (Auto) 10-20 H Urine Bacteria (Auto) Negative Blood Type Antibody Screen Antibody Identification Antibody ID Comment Crossmatch 12/25/19 12/25/19 12/25/19 06:56 07:04 13:08 WBC RBC Hgb Hct MCV MCH MCHC RDW Std Deviation RDW Coeff of Phuong Plt Count MPV Immature Gran % (Auto) Neut % (Auto) Lymph % (Auto) [place] % (Auto) Eos % (Auto) Baso % (Auto) Neut # (Auto) Lymph # (Auto) [place] # (Auto) Eos # (Auto) Baso # (Auto) Immature Gran # (Auto) PT INR APTT PTT Ratio Sodium Potassium Chloride Carbon Dioxide Anion Gap BUN Creatinine Est Cr Clr Drug Dosing Est GFR ( Amer) Est GFR (Non-Af Amer) BUN/Creatinine Ratio Glucose POC Glucose 94 158 H Estimat Average Glucose Hemoglobin A1c Calcium Albumin Urine Color Urine Appearance Urine pH Ur Specific [place] Urine Protein Urine Glucose (UA) Urine Ketones Urine Blood Urine Nitrite Urine Bilirubin Urine Urobilinogen Ur Leukocyte Esterase Urine WBC (Auto) Urine RBC (Auto) U Hyaline Cast (Auto) U Epithel Cells (Auto) Urine Bacteria (Auto) Blood Type O Negative Antibody Screen POSITIVE A Antibody Identification Anti-D Antibody ID Comment Crossmatch See Detail Medications Administered Acetaminophen (Acetaminophen 500 Mg Tab) 1,000 mg PO Q8H ERI Stop: 01/24/20 14:29 Last Admin: 12/25/19 15:28 Dose: 1,000 mg Documented by: [id number] Sodium Chloride (Nss 1000ml) 1,000 mls @ 100 mls/hr IV .Q10H ERI Stop: 12/26/19 06:00 Last Admin: 12/25/19 15:28 Dose: 100 mls/hr Documented by: [id number] Miscellaneous (Cyclosporine [Restasis] 0.05%: Order Awaiting Action) 1 ea N/A QS ERI Stop: 01/24/20 15:59 Last Admin: 12/25/19 15:43 Dose: Not Given Documented by: [id number] Discontinued Medications Acetaminophen (Acetaminophen 500 Mg Tab) 1,000 mg PO PREOP ERI Stop: 12/25/19 18:00 Last Admin: 12/25/19 07:19 Dose: 1,000 mg Documented by: [id number] Albuterol (Albut/Ipratrop 3mg/0.5mg Neb 3 Ml Vial) 3 ml NEB NOW STA Stop: 12/25/19 09:06 Last Admin: 12/25/19 09:21 Dose: 3 ml Documented by: [id number] Albuterol (Albut/Ipratrop 3mg/0.5mg Neb 3 Ml Vial) Confirm Administered Dose 3 ml .ROUTE .STK-MED ONE Stop: 12/25/19 09:17 Last Admin: 12/25/19 15:08 Dose: Not Given Documented by: [id number] Bacitracin (Bacitracin Inj 50,000 Unit Vial) Confirm Administered Dose 50,000 units .ROUTE .STK-MED ONE Stop: 12/25/19 09:30 Last Admin: 12/25/19 12:07 Dose: 50,000 units Documented by: [id number] Dexamethasone (Dexamethasone 4 Mg Tab) 8 mg PO PREOP ERI Stop: 12/25/19 18:00 Last Admin: 12/25/19 07:20 Dose: 8 mg Documented by: [id number] Famotidine (Famotidine 20 Mg Tab) 20 mg PO PREOP ERI Stop: 12/25/19 18:00 Last Admin: 12/25/19 07:22 Dose: 20 mg Documented by: [id number] Gabapentin (Gabapentin 300 Mg Cap) 300 mg PO PREOP ERI Stop: 12/25/19 18:00 Last Admin: 12/25/19 07:22 Dose: 300 mg Documented by: [id number] Vancomycin HCl 1,250 mg/ (Sodium Chloride) 275 mls @ 200 mls/hr IV PREOP ERI Stop: 12/26/19 05:59 Last Infusion: 12/25/19 08:44 Dose: 0 mls/hr Documented by: [id number] Admin: 12/25/19 07:20 Dose: 200 mls/hr Documented by: [id number] Lactated Ringer's (Lr) 1,000 mls @ 15 mls/hr IV .Q24H ERI Stop: 12/26/19 05:59 Last Infusion: 12/25/19 10:00 Dose: 0 mls/hr Documented by: [id number] Admin: 12/25/19 07:19 Dose: 15 mls/hr Documented by: [id number] Metoclopramide HCl (Metoclopramide Hcl 10 Mg Tablet) 10 mg PO PREOP ERI Stop: 12/25/19 18:00 Last Admin: 12/25/19 07:22 Dose: 10 mg Documented by: [id number] (1) Allergic asthma Asthma complication type: unspecified Asthma persistence: unspecified Asthma severity: unspecified severity Qualified Code(s): J45.909 - Unspecified asthma, uncomplicated (2) Diabetes mellitus Diabetes mellitus complication detail: with polyneuropathy Diabetes mellitus complication status: with neurologic complications Diabetes mellitus usp insulin use: with usp use Diabetes mellitus type: type 2 Qualified Code(s): E11.42 - Type 2 diabetes mellitus with diabetic polyneuropathy; 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 of 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 (3) CKD (chronic kidney disease) stage 3, GFR 30-59 ml/min Chronic kidney disease stage 3 subtype: unspecified whether 3a or 3b Qualified Code(s): N18.30 - Chronic kidney disease, stage 3 unspecified (4) Hyperlipidemia Hyperlipidemia type: unspecified Qualified Code(s): E78.5 - Hyperlipidemia, unspecified (5) Hypothyroidism Hypothyroidism type: unspecified Qualified Code(s): E03.9 - Hypothyroidism, unspecified (6) Chronic obstructive pulmonary disease COPD type: unspecified COPD Qualified Code(s): J44.9 - Chronic obstructive pulmonary disease, unspecified (7) GERD (gastroesophageal reflux disease) Esophagitis presence: without esophagitis Qualified Code(s): K21.9 - Gastro- esophageal reflux disease without esophagitis (8) Hypertension Hypertension type: unspecified Qualified Code(s): I10 - Essential (primary) hypertension
[2019-12-25] MEDS ORDERED: VANCOMYCIN HCL 1,250 MG in SODIUM CHLORIDE 0.9% 250 ML IV SCH (18:00)
[2019-12-25] MEDS: INSULIN GLARGINE SOLOSTAR 100 UNITS/ML 3 ML PEN SC SCH (18:19)
[2019-12-25] MEDS: INSULIN ASPART 100 UNITS/ML 3 ML PEN SC SCH ×2 (18:19→21:36)
[2019-12-25] MEDS: ASPIRIN 81 MG ECTAB PO SCH (21:34)
[2019-12-25] MEDS: SENNA 8.6 MG TAB PO SCH (21:35)
[2019-12-25] MEDS: DOCUSATE SODIUM 100 MG CAP PO SCH (21:35)
[2019-12-26] MEDS ORDERED: INSULIN ASPART 100 UNITS/ML 3 ML PEN SC SCH
[2019-12-26] MEDS: oxyCODONE HCL IR 5 MG TAB (IMMEDIATE RELEASE) PO PRN ×4 (02:47→21:35)
[2019-12-26] MEDS: SODIUM CHLORIDE 0.9% 1000ML 1,000 ML IV SCH (02:47)
[2019-12-26] MEDS: LEVOTHYROXINE SODIUM 88 MCG TABLET PO SCH (05:39)
[2019-12-26] MEDS: ACETAMINOPHEN 500 MG TAB PO SCH ×3 (05:39→21:35)
[2019-12-26 07:11] LABS: Basophils # (auto) 0.01 K/uL (0-0.2); Basophils % (auto) 0.1 %; Hematocrit (blood only) 29.8 % (37-47); Hemoglobin 9.4 g/dL (12.0-16.0); Immature Granulocytes # (auto) 0.03 K/uL (0.00-0.02); Immature Granulocytes % (auto) 0.2 %; Lymphocytes # (auto) 1.22 K/uL (1.2-3.4); Lymphocytes % (auto) 10.1 %; Mean Corpuscular Hgb Conc 31.5 g/dL (32-36); Mean Corpuscular Volume 88.7 fL (80-100); Mean Platelet Volume 9.9 fL (7.4-10.4); Monocytes # (auto) 1.03 K/uL (0.11-0.59); Monocytes % (auto) 8.5 %; Neutrophils # (auto) 9.82 K/uL (1.4-6.5); Neutrophils % (auto) 81.1 %; Platelet Count 304 K/uL (130-400); RDW Coefficient of Variation 15.2 % (11.5-14.5); RDW Standard Deviation 48.7 fL (36.4-46.3); Red Blood Count 3.36 M/uL (4.2-5.4); White Blood Count 12.11 K/uL (4.8-10.8)
[2019-12-26 07:37] LABS: Calcium 8.2 mg/dl (8.5-10.1); Creatinine Clr Calc Pharmacy 40.5 ml/min; Est GFR (Non-African American) 46.6; Potassium 4.1 mmol/L (3.5-5.1)
--- NOTE | 2019-12-26 07:46 | Orthopedic Progress Note ---
Date of Service December 26, 2019 Assessment & Plan (1) Rotator cuff arthropathy of right shoulder: POD #1 Right Reverse TSA, Biceps tenodesis Limited PT/ OT DVT proph- ASA D/C plans- will monitor pain and asthma today, D/C home tomorrow if stable w HEP, NO formal PT. Appreciate medicine input- if wheezing returns plan is for CXR/ standing neb orders. Admission and Anticipated Discharge Date Admission Date: December 25, 2019 Subjective POD #1, Feeling well this AM. Had some post op wheezing, has hx of allergic asthma, given nebulizer and doing well this AM. Denies SOB, Cp, N/V. Pain is starting to get a bit worse as the nerve block wears off. Physical Exam Physical Exam: Right shoulder dressings c/d/i, no drainage. Fingers mobile. Sling in tact. A&Ox3. Results & Data ([facility]) Vital Signs (Past 12 Hours) Vital Signs Temp Pulse Resp BP Pulse Ox 12/26/19 02:48 36.7 C 91 H 18 126/73 95 12/25/19 23:24 36.7 C 80 18 112/64 92 12/25/19 19:48 36.5 C 78 18 106/64 93
--- NOTE | 2019-12-26 08:31 | Pharmacy Report ---
Pharmacy Glycemic Short Note 2 - Date of Service December 26, 2019 - Glycemic Short BSG Results (Last 24 hours): 12/25/19 12/25/19 12/25/19 13:08 17:05 20:38 Glucose POC Glucose 158 H 258 H 262 H 12/26/19 12/26/19 00:03 06:59 Glucose 104 H POC Glucose 144 H OUTPATIENT ANTIDIABETIC REGIMEN: * Toujeo, linagliptan, metformin * A1c = 6.6 % 11/22/19 ASSESSMENT: * 64 yo T2DM female s/p POD #1 R shoulder arthroplasty * Pt with excellent outpatient control per recent A1c. No changes needed to outpatient regimen on DC * Outpatient antidiabetic meds of linagliptin & metformin on hold for admission - using NovoLog in their place. * BSGs elevated yesterday secondary to receiving dexamethasone pre-op. Hyperglycemic effects should be tapering today * Will empirically loosen NovoLog parameters now that steroids are not being continued today to prevent hypo. PLAN FOR INPATIENT GLYCEMIC CONTROL: * Hold outpatient diabetes medications * Basal insulin * Lantus 55 units SQ HS {this is outpatient dosing} * Bolus insulin: loosen CF/CR * NovoLog per scale ACHS or Q6hrs while NPO * Goal Range: Low 100 mg/dL - High 140 mg/dL * Correction Factor: 20 mg/dL/unit * Nutritional / Prandial insulin per carb ratio of 1 unit per 7 grams CHO consumed PLAN FOR DISCHARGE: * No changes needed to outpatient regimen. A1c is in goal range for age/co- morbidities.
[2019-12-26] MEDS ORDERED: SIMVASTATIN 40 MG TAB PO SCH (09:00)
[2019-12-26] MEDS ORDERED: MULTIVITAMIN TAB PO SCH (09:00)
[2019-12-26] MEDS ORDERED: amLODIPine BESYLATE 5 MG TAB PO SCH (09:00)
[2019-12-26] MEDS: CALCIUM CARBONATE 1250MG TAB PO SCH (09:18)
[2019-12-26] MEDS: DOCUSATE SODIUM 100 MG CAP PO SCH ×2 (09:18→21:35)
[2019-12-26] MEDS: FLUTICASONE PROPIONATE NA SPR 16 GM BTL SCH (09:18)
[2019-12-26] MEDS: CYANOCOBALAMIN 500 MCG TABLET (VITAMIN B-12) PO SCH (09:18)
[2019-12-26] MEDS: FLUTICASONE/VILANTEROL 200/25MCG 14 PUFFS/INHALER INH SCH (09:19)
[2019-12-26] MEDS: MULTIVITAMIN TAB PO SCH (09:20)
[2019-12-26] MEDS: LOSARTAN POTASSIUM 50 MG TAB PO SCH (09:20)
[2019-12-26] MEDS: CETIRIZINE HCL 10 MG TABLET PO SCH (09:20)
[2019-12-26] MEDS: MAGNESIUM OXIDE 400 MG TAB PO SCH (09:20)
[2019-12-26] MEDS: PANTOprazole 40 MG TAB PO SCH (09:21)
[2019-12-26] MEDS: CHLORTHALIDONE 25 MG TAB PO SCH (09:22)
[2019-12-26] MEDS: ASPIRIN 81 MG ECTAB PO SCH ×2 (09:22→21:35)
[2019-12-26] MEDS: INSULIN ASPART 100 UNITS/ML 3 ML PEN SC SCH ×4 (09:28→21:32)
--- NOTE | 2019-12-26 09:43 | Hospitalist Progress Note ---
Date of Service December 26, 2019 Assessment & Plan (1) Rotator cuff arthropathy of right shoulder: POD #1 s/p right reverse total shoulder arthroplasty with biceps tenodesis - Pain control, PT/OT, DVT prophylaxis per primary service - Encourage incentive spirometry (2) Acute blood loss anemia: Hgb 9.4 today (pre-op hgb 13.4). Denies any lightheadedness, CP or SOB -Continue to monitor drain output, daily CBC (3) Hypothyroidism: - Continue outpatient levothyroxine (4) Hypertension: - Continue home regimen - currently well-controlled (5) Hyperlipidemia: - Continue outpatient statin therapy - clarified med rec (6) Allergic asthma: Receiving Xolair injections monthly with last dose ~1 month ago - pt reports scheduled for next dose later this month. Wheezing much improved - continue duoneb Q4H PRN for SOB or wheezing. If worsening, discussed changing to scheduled and checking chest x-ray (7) GERD (gastroesophageal reflux disease): - Continue outpatient PPI therapy (8) Chronic obstructive pulmonary disease: - Continue outpatient inhalers - Nebs as discussed above (9) Diabetes mellitus: Pharmacy consulted for glycemic management Accuchecks - pt reports usually well-controlled with fasting glucose 70-100 Diabetic diet (10) CKD (chronic kidney disease) stage 3, GFR 30-59 ml/min: -Kidney function at baseline Patient seen in collaboration with Dr. Rutherford. Please see addendum. Thank you for this consultation. We will follow the patient with you during their hospital stay. You can reach a [facility] via pager @ [phone]. Admission and Anticipated Discharge Date Admission Date: December 25, 2019 Supervising Physician Co-Signing Physician Notes Physical Exam Gen-AAO x 3, NAD, Afebrile Head-NCAT, EOMI, PERRLA, Anicteric Sclera, No Posterior Pharyngeal Erythema Neck-Supple, No JVD, No Thyromegaly, No Masses, No LAD, No Bruits Lungs-Clear to Auscultation Bilaterally, No Rales, No Rhonchi, No Wheezing, No Crepitus Chest-No S4, +S1, +S2, No S3, No Murmurs, No Rubs, No Gallops, No Ectopy Abdomen-Soft, Bowel Sounds Present, Non Tender, Non Distended, No Hepatomegaly, No Splenomegaly, No Palpable Masses, No Rebound, No Rigidity, No Guarding Musculoskeletal-Full Range of Motion Bilaterally, No CVAT Extremities-No Cyanosis, No Clubbing, No Edema, RUE in Sling c Drain in place Nuero-Cranial Nerves II-XII grossly intact, Motor WNL, DTRs WNL, Strength WNL, Non Focal Psych-Normal Mood Subjective Seen and examined in 307-1. Feeling well today. Surgical pain in R shoulder, exacerbated with movement. Post op wheezing noted yesterday much improved with nebulizer treatments. Has not yet required one today. No CP or SOB. Tolerating diet without issue. No N/V/D. No fever, chills, lightheadedness, headache, cough, dysuria, diarrhea or constipation. Review of Systems Review of Systems: At least ten systems reviewed and negative except as noted in the HPI. Physical Exam Physical Exam: General Appearance: WD/WN, vitals as above, NAD, sitting up in bed, pleasant, conversing easily Head: normocephalic, atraumatic Eyes: normal inspection, PERRL, conjunctivae normal, anicteric sclerae ENT: external ear and nose normal, oropharynx normal Neck: normal visual inspection, trachea midline, no thyromegaly Respiratory: normal respiratory effort, lungs clear to auscultation, no wheeze, rales, rhonchi. No accessory muscle use Cardiovascular: regular rate, rhythm, no murmur, normal peripheral pulses, no BLE edema. Vessels: no JVD Abdomen/GI: normal bowel sounds, soft, nontender, no hepatosplenomegaly Extremities/Musculoskeletal: +R shoulder dressing in place, drain visualized. No cyanosis or clubbing, extremities motor strength 5/5 Neurologic: PERRL, CN's II-XI intact bilaterally and moves all extremities Psychiatric: A+Ox3, euthymic affect Skin: no rashes, normal color, warm/dry Results & Data Results & Data ([facility]) Vital Signs (Past 12 Hours) Vital Signs Temp Pulse Resp BP Pulse Ox 12/26/19 07:30 36.5 C 85 16 125/74 95 12/26/19 02:48 36.7 C 91 H 18 126/73 95 12/25/19 23:24 36.7 C 80 18 112/64 92 Laboratory Results Short CBC 11/22/19 11/22/19 11/22/19 Range/Units 10:59 10:59 10:59 WBC (4.8-10.8) K/uL RBC 4.74 (4.2-5.4) M/uL Hgb (12.0-16.0) g/dL Hct (37-47) % MCV 88.4 (80-100) fL MCH 28.3 (25-34) pg MCHC 32.0 (32-36) g/dL RDW Std Deviation 46.2 (36.4-46.3) fL RDW Coeff of [place] 14.2 (11.5-14.5) % Plt Count (130-400) K/uL MPV 10.8 H (7.4-10.4) fL Immature Gran % (Auto) 0.5 % Neut % (Auto) 73.0 % Lymph % (Auto) 17.5 % [place] % (Auto) 6.3 % Eos % (Auto) 2.3 % Baso % (Auto) 0.4 % Neut # (Auto) 6.99 H (1.4-6.5) K/uL Lymph # (Auto) 1.67 (1.2-3.4) K/uL [place] # (Auto) 0.60 H (0.11-0.59) K/uL Eos # (Auto) 0.22 (0-0.5) K/uL Baso # (Auto) 0.04 (0-0.2) K/uL Immature Gran # (Auto) 0.05 H (0.00-0.02) K/uL PT 10.5 (9.0-12.0) Seconds INR 1.0 (0.9-1.1) APTT 28.7 (21.0-31.0) Seconds PTT Ratio 1.0 Sodium (136-145) mmol/L Potassium (3.5-5.1) mmol/L Chloride (98-107) mmol/L Carbon Dioxide (21-32) mmol/L Anion Gap (3-11) BUN (7-18) mg/dl Creatinine (0.6-1.2) mg/dl Est Cr Clr Drug Dosing ml/min Est GFR ( Amer) Est GFR (Non-Af Amer) BUN/Creatinine Ratio (10-20) Glucose (70-99) mg/dl POC Glucose (70-99) mg/dl Estimat Average Glucose mg/dl Hemoglobin A1c (4.5-5.6) % Calcium (8.5-10.1) mg/dl Albumin (3.4-5.0) gm/dl Urine Color Urine Appearance (Clear) Urine pH (4.5-7.5) Ur Specific [place] (1.000-1.030) Urine Protein (Negative) Urine Glucose (UA) (Negative) Urine Ketones (Negative) Urine Blood (Negative) Urine Nitrite (Negative) Urine Bilirubin (Negative) Urine Urobilinogen (Negative) Ur Leukocyte Esterase (Negative) Urine WBC (Auto) (0-5) /hpf Urine RBC (Auto) (0-4) /hpf U Hyaline Cast (Auto) (0-5) /lpf U Epithel Cells (Auto) (0-5) /lpf Urine Bacteria (Auto) (Negative) Hepatitis C Ab Screen (Neg) Blood Type O Negative Antibody Screen POSITIVE A Antibody Identification Anti-D Antibody ID Comment Crossmatch 11/22/19 11/22/19 11/22/19 Range/Units 10:59 10:59 10:59 WBC (4.8-10.8) K/uL RBC (4.2-5.4) M/uL Hgb (12.0-16.0) g/dL Hct (37-47) % MCV (80-100) fL MCH (25-34) pg MCHC (32-36) g/dL RDW Std Deviation (36.4-46.3) fL RDW Coeff of [place] (11.5-14.5) % Plt Count (130-400) K/uL MPV (7.4-10.4) fL Immature Gran % (Auto) % Neut % (Auto) % Lymph % (Auto) % [place] % (Auto) % Eos % (Auto) % Baso % (Auto) % Neut # (Auto) (1.4-6.5) K/uL Lymph # (Auto) (1.2-3.4) K/uL [place] # (Auto) (0.11-0.59) K/uL Eos # (Auto) (0-0.5) K/uL Baso # (Auto) (0-0.2) K/uL Immature Gran # (Auto) (0.00-0.02) K/uL PT (9.0-12.0) Seconds INR (0.9-1.1) APTT (21.0-31.0) Seconds PTT Ratio Sodium 139 (136-145) mmol/L Potassium 3.6 (3.5-5.1) mmol/L Chloride 104 (98-107) mmol/L Carbon Dioxide 28 (21-32) mmol/L Anion Gap 7.0 (3-11) BUN 19 H (7-18) mg/dl Creatinine 1.26 H (0.6-1.2) mg/dl Est Cr Clr Drug Dosing 39.5 ml/min Est GFR ( Amer) 51.4 Est GFR (Non-Af Amer) 44.4 BUN/Creatinine Ratio 15.3 (10-20) Glucose 107 H (70-99) mg/dl POC Glucose (70-99) mg/dl Estimat Average Glucose 143 mg/dl Hemoglobin A1c 6.6 H (4.5-5.6) % Calcium 9.5 (8.5-10.1) mg/dl Albumin 4.1 (3.4-5.0) gm/dl Urine Color Yellow Urine Appearance Clear (Clear) Urine pH 6.0 (4.5-7.5) Ur Specific [place] 1.014 (1.000-1.030) Urine Protein Negative (Negative) Urine Glucose (UA) Negative (Negative) Urine Ketones Negative (Negative) Urine Blood Negative (Negative) Urine Nitrite Negative (Negative) Urine Bilirubin Negative (Negative) Urine Urobilinogen Negative (Negative) Ur Leukocyte Esterase Trace H (Negative) Urine WBC (Auto) 1-5 (0-5) /hpf Urine RBC (Auto) 0-4 (0-4) /hpf U Hyaline Cast (Auto) 0 (0-5) /lpf U Epithel Cells (Auto) 10-20 H (0-5) /lpf Urine Bacteria (Auto) Negative (Negative) Hepatitis C Ab Screen (Neg) Blood Type Antibody Screen Antibody Identification Antibody ID Comment Crossmatch 12/25/19 12/25/19 12/25/19 Range/Units 06:56 07:04 13:08 WBC (4.8-10.8) K/uL RBC (4.2-5.4) M/uL Hgb (12.0-16.0) g/dL Hct (37-47) % MCV (80-100) fL MCH (25-34) pg MCHC (32-36) g/dL RDW Std Deviation (36.4-46.3) fL RDW Coeff of [place] (11.5-14.5) % Plt Count (130-400) K/uL MPV (7.4-10.4) fL Immature Gran % (Auto) % Neut % (Auto) % Lymph % (Auto) % [place] % (Auto) % Eos % (Auto) % Baso % (Auto) % Neut # (Auto) (1.4-6.5) K/uL Lymph # (Auto) (1.2-3.4) K/uL [place] # (Auto) (0.11-0.59) K/uL Eos # (Auto) (0-0.5) K/uL Baso # (Auto) (0-0.2) K/uL Immature Gran # (Auto) (0.00-0.02) K/uL PT (9.0-12.0) Seconds INR (0.9-1.1) APTT (21.0-31.0) Seconds PTT Ratio Sodium (136-145) mmol/L Potassium (3.5-5.1) mmol/L Chloride (98-107) mmol/L Carbon Dioxide (21-32) mmol/L Anion Gap (3-11) BUN (7-18) mg/dl Creatinine (0.6-1.2) mg/dl Est Cr Clr Drug Dosing ml/min Est GFR ( Amer) Est GFR (Non-Af Amer) BUN/Creatinine Ratio (10-20) Glucose (70-99) mg/dl POC Glucose 94 158 H (70-99) mg/dl Estimat Average Glucose mg/dl Hemoglobin A1c (4.5-5.6) % Calcium (8.5-10.1) mg/dl Albumin (3.4-5.0) gm/dl Urine Color Urine Appearance (Clear) Urine pH (4.5-7.5) Ur Specific [place] (1.000-1.030) Urine Protein (Negative) Urine Glucose (UA) (Negative) Urine Ketones (Negative) Urine Blood (Negative) Urine Nitrite (Negative) Urine Bilirubin (Negative) Urine Urobilinogen (Negative) Ur Leukocyte Esterase (Negative) Urine WBC (Auto) (0-5) /hpf Urine RBC (Auto) (0-4) /hpf U Hyaline Cast (Auto) (0-5) /lpf U Epithel Cells (Auto) (0-5) /lpf Urine Bacteria (Auto) (Negative) Hepatitis C Ab Screen (Neg) Blood Type O Negative Antibody Screen POSITIVE A Antibody Identification Anti-D Antibody ID Comment Crossmatch See Detail 12/25/19 12/25/19 12/26/19 Range/Units 17:05 20:38 00:03 WBC (4.8-10.8) K/uL RBC (4.2-5.4) M/uL Hgb (12.0-16.0) g/dL Hct (37-47) % MCV (80-100) fL MCH (25-34) pg MCHC (32-36) g/dL RDW Std Deviation (36.4-46.3) fL RDW Coeff of [place] (11.5-14.5) % Plt Count (130-400) K/uL MPV (7.4-10.4) fL Immature Gran % (Auto) % Neut % (Auto) % Lymph % (Auto) % [place] % (Auto) % Eos % (Auto) % Baso % (Auto) % Neut # (Auto) (1.4-6.5) K/uL Lymph # (Auto) (1.2-3.4) K/uL [place] # (Auto) (0.11-0.59) K/uL Eos # (Auto) (0-0.5) K/uL Baso # (Auto) (0-0.2) K/uL Immature Gran # (Auto) (0.00-0.02) K/uL PT (9.0-12.0) Seconds INR (0.9-1.1) APTT (21.0-31.0) Seconds PTT Ratio Sodium (136-145) mmol/L Potassium (3.5-5.1) mmol/L Chloride (98-107) mmol/L Carbon Dioxide (21-32) mmol/L Anion Gap (3-11) BUN (7-18) mg/dl Creatinine (0.6-1.2) mg/dl Est Cr Clr Drug Dosing ml/min Est GFR ( Amer) Est GFR (Non-Af Amer) BUN/Creatinine Ratio (10-20) Glucose (70-99) mg/dl POC Glucose 258 H 262 H 144 H (70-99) mg/dl Estimat Average Glucose mg/dl Hemoglobin A1c (4.5-5.6) % Calcium (8.5-10.1) mg/dl Albumin (3.4-5.0) gm/dl Urine Color Urine Appearance (Clear) Urine pH (4.5-7.5) Ur Specific [place] (1.000-1.030) Urine Protein (Negative) Urine Glucose (UA) (Negative) Urine Ketones (Negative) Urine Blood (Negative) Urine Nitrite (Negative) Urine Bilirubin (Negative) Urine Urobilinogen (Negative) Ur Leukocyte Esterase (Negative) Urine WBC (Auto) (0-5) /hpf Urine RBC (Auto) (0-4) /hpf U Hyaline Cast (Auto) (0-5) /lpf U Epithel Cells (Auto) (0-5) /lpf Urine Bacteria (Auto) (Negative) Hepatitis C Ab Screen (Neg) Blood Type Antibody Screen Antibody Identification Antibody ID Comment Crossmatch 12/26/19 12/26/19 12/26/19 Range/Units 06:59 06:59 06:59 WBC 12.11 H (4.8-10.8) K/uL RBC 3.36 L (4.2-5.4) M/uL Hgb 9.4 L (12.0-16.0) g/dL Hct 29.8 L (37-47) % MCV 88.7 (80-100) fL MCH 28.0 (25-34) pg MCHC 31.5 L (32-36) g/dL RDW Std Deviation 48.7 H (36.4-46.3) fL RDW Coeff of [place] 15.2 H (11.5-14.5) % Plt Count 304 (130-400) K/uL MPV 9.9 (7.4-10.4) fL Immature Gran % (Auto) 0.2 % Neut % (Auto) 81.1 % Lymph % (Auto) 10.1 % [place] % (Auto) 8.5 % Eos % (Auto) 0.0 % Baso % (Auto) 0.1 % Neut # (Auto) 9.82 H (1.4-6.5) K/uL Lymph # (Auto) 1.22 (1.2-3.4) K/uL [place] # (Auto) 1.03 H (0.11-0.59) K/uL Eos # (Auto) 0.00 (0-0.5) K/uL Baso # (Auto) 0.01 (0-0.2) K/uL Immature Gran # (Auto) 0.03 H (0.00-0.02) K/uL PT (9.0-12.0) Seconds INR (0.9-1.1) APTT (21.0-31.0) Seconds PTT Ratio Sodium 138 (136-145) mmol/L Potassium 4.1 (3.5-5.1) mmol/L Chloride 109 H (98-107) mmol/L Carbon Dioxide 27 (21-32) mmol/L Anion Gap 2.0 L (3-11) BUN 19 H (7-18) mg/dl Creatinine 1.21 H (0.6-1.2) mg/dl Est Cr Clr Drug Dosing 40.5 ml/min Est GFR ( Amer) 54.0 Est GFR (Non-Af Amer) 46.6 BUN/Creatinine Ratio 16.0 (10-20) Glucose 104 H (70-99) mg/dl POC Glucose (70-99) mg/dl Estimat Average Glucose mg/dl Hemoglobin A1c (4.5-5.6) % Calcium 8.2 L (8.5-10.1) mg/dl Albumin (3.4-5.0) gm/dl Urine Color Urine Appearance (Clear) Urine pH (4.5-7.5) Ur Specific [place] (1.000-1.030) Urine Protein (Negative) Urine Glucose (UA) (Negative) Urine Ketones (Negative) Urine Blood (Negative) Urine Nitrite (Negative) Urine Bilirubin (Negative) Urine Urobilinogen (Negative) Ur Leukocyte Esterase (Negative) Urine WBC (Auto) (0-5) /hpf Urine RBC (Auto) (0-4) /hpf U Hyaline Cast (Auto) (0-5) /lpf U Epithel Cells (Auto) (0-5) /lpf Urine Bacteria (Auto) (Negative) Hepatitis C Ab Screen Neg (Neg) Blood Type Antibody Screen Antibody Identification Antibody ID Comment Crossmatch 12/26/19 Range/Units 08:26 WBC (4.8-10.8) K/uL RBC (4.2-5.4) M/uL Hgb (12.0-16.0) g/dL Hct (37-47) % MCV (80-100) fL MCH (25-34) pg MCHC (32-36) g/dL RDW Std Deviation (36.4-46.3) fL RDW Coeff of [place] (11.5-14.5) % Plt Count (130-400) K/uL MPV (7.4-10.4) fL Immature Gran % (Auto) % Neut % (Auto) % Lymph % (Auto) % [place] % (Auto) % Eos % (Auto) % Baso % (Auto) % Neut # (Auto) (1.4-6.5) K/uL Lymph # (Auto) (1.2-3.4) K/uL [place] # (Auto) (0.11-0.59) K/uL Eos # (Auto) (0-0.5) K/uL Baso # (Auto) (0-0.2) K/uL Immature Gran # (Auto) (0.00-0.02) K/uL PT (9.0-12.0) Seconds INR (0.9-1.1) APTT (21.0-31.0) Seconds PTT Ratio Sodium (136-145) mmol/L Potassium (3.5-5.1) mmol/L Chloride (98-107) mmol/L Carbon Dioxide (21-32) mmol/L Anion Gap (3-11) BUN (7-18) mg/dl Creatinine (0.6-1.2) mg/dl Est Cr Clr Drug Dosing ml/min Est GFR ( Amer) Est GFR (Non-Af Amer) BUN/Creatinine Ratio (10-20) Glucose (70-99) mg/dl POC Glucose 102 H (70-99) mg/dl Estimat Average Glucose mg/dl Hemoglobin A1c (4.5-5.6) % Calcium (8.5-10.1) mg/dl Albumin (3.4-5.0) gm/dl Urine Color Urine Appearance (Clear) Urine pH (4.5-7.5) Ur Specific [place] (1.000-1.030) Urine Protein (Negative) Urine Glucose (UA) (Negative) Urine Ketones (Negative) Urine Blood (Negative) Urine Nitrite (Negative) Urine Bilirubin (Negative) Urine Urobilinogen (Negative) Ur Leukocyte Esterase (Negative) Urine WBC (Auto) (0-5) /hpf Urine RBC (Auto) (0-4) /hpf U Hyaline Cast (Auto) (0-5) /lpf U Epithel Cells (Auto) (0-5) /lpf Urine Bacteria (Auto) (Negative) Hepatitis C Ab Screen (Neg) Blood Type Antibody Screen Antibody Identification Antibody ID Comment Crossmatch [facility] 12/26/19 06:59 Sodium 138 Potassium 4.1 Chloride 109 H Carbon Dioxide 27 BUN 19 H Creatinine 1.21 H Glucose 104 H Calcium 8.2 L (1) Allergic asthma Asthma complication type: unspecified Asthma persistence: unspecified Asthma severity: unspecified severity Qualified Code(s): J45.909 - Unspecified asthma, uncomplicated (2) Diabetes mellitus Diabetes mellitus complication detail: with polyneuropathy Diabetes mellitus complication status: with neurologic complications Diabetes mellitus care home insulin use: with tank terminal gauger use Diabetes mellitus type: type 2 Qualified Code(s): E11.42 - Type 2 diabetes mellitus with diabetic polyneuropathy; Z79.4 - assisted (current) use of insulin (3) CKD (chronic kidney disease) stage 3, GFR 30-59 ml/min Chronic kidney disease stage 3 subtype: unspecified whether 3a or 3b Qualified Code(s): N18.30 - Chronic kidney disease, stage 3 unspecified (4) Hyperlipidemia Hyperlipidemia type: unspecified Qualified Code(s): E78.5 - Hyperlipidemia, unspecified (5) Hypothyroidism Hypothyroidism type: unspecified Qualified Code(s): E03.9 - Hypothyroidism, unspecified (6) Chronic obstructive pulmonary disease COPD type: unspecified COPD Qualified Code(s): J44.9 - Chronic obstructive pulmonary disease, unspecified (7) GERD (gastroesophageal reflux disease) Esophagitis presence: without esophagitis Qualified Code(s): K21.9 - Gastro- esophageal reflux disease without esophagitis (8) Hypertension Hypertension type: unspecified Qualified Code(s): I10 - Essential (primary) hypertension
[2019-12-26] MEDS: UMECLIDINIUM BROMIDE 62.5MCG/BLISTER 7 PUFFS/INHALER INH SCH (10:22)
[2019-12-26] MEDS: amLODIPine BESYLATE 5 MG TAB PO SCH (10:22)
[2019-12-26] MEDS: ATORVASTATIN 40 MG TAB PO SCH (10:22)
[2019-12-26] MEDS: INSULIN GLARGINE SOLOSTAR 100 UNITS/ML 3 ML PEN SC SCH (21:33)
[2019-12-26] MEDS: SENNA 8.6 MG TAB PO SCH (21:35)
[2019-12-27] MEDS: LEVOTHYROXINE SODIUM 88 MCG TABLET PO SCH (05:50)
[2019-12-27] MEDS: ACETAMINOPHEN 500 MG TAB PO SCH (05:50)
[2019-12-27] MEDS: oxyCODONE HCL IR 5 MG TAB (IMMEDIATE RELEASE) PO PRN ×2 (05:50→11:10)
[2019-12-27 06:02] LABS: Basophils # (auto) 0.03 K/uL (0-0.2); Basophils % (auto) 0.3 %; Eosinophils # (auto) 0.43 K/uL (0-0.5); Hematocrit (blood only) 30.1 % (37-47); Hemoglobin 9.5 g/dL (12.0-16.0); Immature Granulocytes # (auto) 0.02 K/uL (0.00-0.02); Immature Granulocytes % (auto) 0.2 %; Lymphocytes # (auto) 1.87 K/uL (1.2-3.4); Lymphocytes % (auto) 17.5 %; Mean Corpuscular Hemoglobin 28.4 pg (25-34); Mean Corpuscular Hgb Conc 31.6 g/dL (32-36); Mean Corpuscular Volume 89.9 fL (80-100); Mean Platelet Volume 10.4 fL (7.4-10.4); Monocytes # (auto) 1.28 K/uL (0.11-0.59); Neutrophils # (auto) 7.08 K/uL (1.4-6.5); Platelet Count 306 K/uL (130-400); RDW Coefficient of Variation 15.6 % (11.5-14.5); RDW Standard Deviation 51.1 fL (36.4-46.3); Red Blood Count 3.35 M/uL (4.2-5.4); White Blood Count 10.71 K/uL (4.8-10.8)
[2019-12-27 06:27] LABS: BUN Creatinine Ratio 15.2 (10-20); Calcium 8.4 mg/dl (8.5-10.1); Creatinine Clr Calc Pharmacy 36.3 ml/min; Est GFR (African American) 47.3; Est GFR (Non-African American) 40.8
[2019-12-27] MEDS: FLUTICASONE PROPIONATE NA SPR 16 GM BTL SCH (07:35)
[2019-12-27] MEDS: DOCUSATE SODIUM 100 MG CAP PO SCH (07:35)
[2019-12-27] MEDS: amLODIPine BESYLATE 5 MG TAB PO SCH (07:36)
[2019-12-27] MEDS: ATORVASTATIN 40 MG TAB PO SCH (07:36)
[2019-12-27] MEDS: CYANOCOBALAMIN 500 MCG TABLET (VITAMIN B-12) PO SCH (07:37)
[2019-12-27] MEDS: PANTOprazole 40 MG TAB PO SCH (07:37)
[2019-12-27] MEDS: MAGNESIUM OXIDE 400 MG TAB PO SCH (07:37)
[2019-12-27] MEDS: ASPIRIN 81 MG ECTAB PO SCH (07:37)
[2019-12-27] MEDS: UMECLIDINIUM BROMIDE 62.5MCG/BLISTER 7 PUFFS/INHALER INH SCH (07:37)
[2019-12-27] MEDS: FLUTICASONE/VILANTEROL 200/25MCG 14 PUFFS/INHALER INH SCH (07:37)
[2019-12-27] MEDS: LOSARTAN POTASSIUM 50 MG TAB PO SCH (07:38)
[2019-12-27] MEDS: CALCIUM CARBONATE 1250MG TAB PO SCH (07:38)
[2019-12-27] MEDS: CETIRIZINE HCL 10 MG TABLET PO SCH (07:38)
[2019-12-27] MEDS: MULTIVITAMIN TAB PO SCH (07:38)
[2019-12-27] MEDS: CHLORTHALIDONE 25 MG TAB PO SCH (07:38)
[2019-12-27] MEDS: INSULIN ASPART 100 UNITS/ML 3 ML PEN SC SCH (07:39)
--- NOTE | 2019-12-27 07:58 | Orthopedic Progress Note ---
Date of Service December 27, 2019 Assessment & Plan (1) Rotator cuff arthropathy of right shoulder: POD #2 Right Reverse TSA, Biceps tenodesis Limited PT/ OT DVT proph- ASA D/C plans-plan for discharge to home today if okay with medicine service. Appreciate medicine input Admission and Anticipated Discharge Date Admission Date: December 25, 2019 Subjective Postop day 2 patient sitting up at the bedside. She is doing very well this morning. Pain is controlled. She is not having any trouble with her breathing this morning. Denies shortness of breath, chest pain, lightheadedness. He is hoping to go home today. Physical Exam Physical Exam: Dressings are clean, dry, and intact. Minimal drainage from the Hemovac. She is nontender at the elbow and has good range of motion. Vascular is intact. She has good motor function of her right hand and fingers and sensation is intact. Cap refills less than 2 seconds. Results & Data ([facility]) Vital Signs (Past 12 Hours) Vital Signs Temp Pulse Resp BP Pulse Ox 12/27/19 06:28 36.9 C 86 16 97/62 L 95 12/26/19 23:39 36.7 C 88 16 128/72 93
--- NOTE | 2019-12-27 08:56 | Hospitalist Progress Note ---
Date of Service December 27, 2019 Assessment & Plan (1) Rotator cuff arthropathy of right shoulder: POD #2 s/p right reverse total shoulder arthroplasty with biceps tenodesis - Pain control, PT/OT, DVT prophylaxis per primary service - Encourage incentive spirometry (2) Acute blood loss anemia: Hgb stable at 9.5 (9.4 yesterday, pre-op hgb 13.4). Denies any lightheadedness, CP or SOB -Continue to monitor daily CBC (3) Hypertension: BP has been well controlled and within normal range until this morning with lower readings of 97/62 and 100/64 - patient has been asymptomatic -Discussed BP regimen with patient - amlodipine dose was recently increased from 5 to 10mg daily. Will decrease dose back to amlodipine 5mg daily -script for 5mg, f/u appointment for BP scheduled with PCP -Patient instructed to use home BP cuff and HOLD amlodipine and losartan for SBP <100 (4) Hypothyroidism: Continue outpatient levothyroxine (5) Hyperlipidemia: Continue outpatient statin therapy - clarified med rec (6) Allergic asthma: Receiving Xolair injections monthly with last dose ~1 month ago - pt reports scheduled for next dose later this month. Wheezing much improved - continue duoneb Q4H PRN for SOB or wheezing (7) GERD (gastroesophageal reflux disease): Continue outpatient PPI therapy (8) Chronic obstructive pulmonary disease: Continue outpatient inhalers - Nebs as discussed above (9) Diabetes mellitus: Pharmacy consulted for glycemic management Accuchecks - pt reports usually well-controlled with fasting glucose 70-100 Diabetic diet (10) CKD (chronic kidney disease) stage 3, GFR 30-59 ml/min: -Kidney function at baseline Patient seen in collaboration with Dr. Rutherford. Please see addendum. Thank you for this consultation. We will follow the patient with you during their hospital stay. You can reach a member of [facility] 05[facility] via pager @ [phone]. Admission and Anticipated Discharge Date Admission Date: December 25, 2019 Supervising Physician Co-Signing Physician Notes I saw this patient with the physician assistant plant control operator, I participated in the history, physical, review of systems, and physical exam. I reviewed the medications with the patient and the physician assistant plant control operator and helped reconcile the medications. I helped take a detailed family and social history as well. I formulated the assessment and plan personally with the physician assistant plant control operator and went over it with the patient. ROS-No Headache, No Visual Changes, No Nausea, No Vomiting, No Fever, No Chills, No Neck Pain or Stiffness, No Chest Pain, No Palpitations, No SOB, No SANCHEZ, No Cough, No Sputum, No Wheezing, No Abdominal Pain, No Diarrhea, No Hematemesis, No Hemoptysis, No Unexpected Weight Loss, No Flank pain, No Melena, No Hematochezia, No Frequency, No Urgency, No Burning, No Hematuria, No Rashes, No Diaphoresis. Appetite is Normal Physical Exam Gen-AAO x 3, NAD, Afebrile Head-NCAT, EOMI, PERRLA, Anicteric Sclera, No Posterior Pharyngeal Erythema Neck-Supple, No JVD, No Thyromegaly, No Masses, No LAD, No Bruits Lungs-Clear to Auscultation Bilaterally, No Rales, No Rhonchi, No Wheezing, No Crepitus Chest-No S4, +S1, +S2, No S3, No Murmurs, No Rubs, No Gallops, No Ectopy Abdomen-Soft, Bowel Sounds Present, Non Tender, Non Distended, No Hepatomegaly, No Splenomegaly, No Palpable Masses, No Rebound, No Rigidity, No Guarding Musculoskeletal-Full Range of Motion Bilaterally, No CVAT Extremities-No Cyanosis, No Clubbing, No Edema Nuero-Cranial Nerves II-XII grossly intact, Motor WNL, DTRs WNL, Strength WNL, Non Focal Psych-Normal Mood Subjective Seen and examined in 307-1. Patient feeling well today with minimal shoulder discomfort. Denies any fever, chills, chest pain or SOB. Tolerating diet without issue. No nausea or vomiting. Ready for d/c per primary service. BP has been within normal range until this morning with readings of 97/62 and 100/64. Discussed BP regimen with patient who states amlodipine dose was recently increased from 5 to 10mg daily. Will send with script for 5mg and schedule follow up with PCP for BP check. Review of Systems Review of Systems: At least ten systems reviewed and negative except as noted in the HPI. Physical Exam Physical Exam: General Appearance: WD/WN, vitals as above, NAD, sitting up in bed, pleasant, conversing easily Head: normocephalic, atraumatic Eyes: normal inspection, PERRL, conjunctivae normal, anicteric sclerae ENT: external ear and nose normal, oropharynx normal Neck: normal visual inspection, trachea midline, no thyromegaly Respiratory: normal respiratory effort, scattered expiratory wheezes, no rales or rhonchi. No accessory muscle use Cardiovascular: regular rate, rhythm, no murmur, normal peripheral pulses, no BLE edema. Vessels: no JVD Abdomen/GI: normal bowel sounds, soft, nontender, no hepatosplenomegaly Extremities/Musculoskeletal: +R shoulder dressing in place, drain visualized. No cyanosis or clubbing, extremities motor strength 5/5 Neurologic: PERRL, CN's II-XI intact bilaterally and moves all extremities Psychiatric: A+Ox3, euthymic affect Skin: no rashes, normal color, warm/dry Results & Data Results & Data ([facility]) Vital Signs (Past 12 Hours) Vital Signs Temp Pulse Resp BP Pulse Ox 12/27/19 06:28 36.9 C 86 16 97/62 L 95 12/26/19 23:39 36.7 C 88 16 128/72 93 Laboratory Results Short CBC 12/27/19 Range/Units 05:31 WBC 10.71 (4.8-10.8) K/uL Hgb 9.5 L (12.0-16.0) g/dL Hct 30.1 L (37-47) % Plt Count 306 (130-400) K/uL [facility] 12/27/19 05:31 Sodium 139 Potassium 4.0 Chloride 107 Carbon Dioxide 29 BUN 21 H Creatinine 1.35 H Glucose 111 H Calcium 8.4 L (1) Allergic asthma Asthma complication type: unspecified Asthma persistence: unspecified Asthma severity: unspecified severity Qualified Code(s): J45.909 - Unspecified asthma, uncomplicated (2) Diabetes mellitus Diabetes mellitus complication detail: with polyneuropathy Diabetes mellitus complication status: with neurologic complications Diabetes mellitus skilled nursing insulin use: with skilled nursing use Diabetes mellitus type: type 2 Qualified Code(s): E11.42 - Type 2 diabetes mellitus with diabetic polyneuropathy; 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 (3) CKD (chronic kidney disease) stage 3, GFR 30-59 ml/min Chronic kidney disease stage 3 subtype: unspecified whether 3a or 3b Qualified Code(s): N18.30 - Chronic kidney disease, stage 3 unspecified (4) Hyperlipidemia Hyperlipidemia type: unspecified Qualified Code(s): E78.5 - Hyperlipidemia, unspecified (5) Hypothyroidism Hypothyroidism type: unspecified Qualified Code(s): E03.9 - Hypothyroidism, unspecified (6) Chronic obstructive pulmonary disease COPD type: unspecified COPD Qualified Code(s): J44.9 - Chronic obstructive pulmonary disease, unspecified (7) GERD (gastroesophageal reflux disease) Esophagitis presence: without esophagitis Qualified Code(s): K21.9 - Gastro- esophageal reflux disease without esophagitis (8) Hypertension Hypertension type: unspecified Qualified Code(s): I10 - Essential (primary) hypertension
--- NOTE | 2020-01-07 18:57 | Discharge Summary (DS) ---
HISTORY OF PRESENT ILLNESS: This is a 64-year-old female patient of Dr. Parrish'marion complaining of chronic right shoulder pain and weakness, longstanding, progressively getting worse. The patient failed conservative treatment and elected to proceed with a right reverse total shoulder arthroplasty. PAST MEDICAL HISTORY: Hypertension, hypercholesterolemia, asthma, COPD, peripheral neuropathy, diabetes mellitus, hypothyroidism, osteoarthritis, back problems, acid reflux, obesity. POSTOPERATIVE COURSE: The patient underwent a right reverse total shoulder arthroplasty and biceps tenodesis on 12/25/2019. The patient was followed closely with medical consultation, DVT prophylaxis in the form of aspirin, physical therapy and pain control. Immediately postoperatively, she did have some postoperative wheezing in the PACU. She was given a nebulizer treatment. By postoperative day #1, she was feeling well without any wheezing. The patient continued with her COPD and asthma medication and did well thereafter. PHYSICAL EXAMINATION: On discharge, right shoulder incision was clean, dry and intact. Whiting were intact. Skin edges were approximated well. There was no redness or drainage. Elbow, wrist, hand, and finger motion were intact. Sling was intact. Neurologically and neurovascularly she is intact in her right upper extremity. DIAGNOSES: Status post right reverse total shoulder arthroplasty and biceps tenodesis. She has a history of hypertension, hypercholesterolemia, asthma, chronic obstructive pulmonary disease, peripheral neuropathy, diabetes mellitus, hypothyroidism, osteoarthritis, neck problems, obesity and acid reflux. PLAN: The patient was discharged home with limited home exercise program only. She will continue her preadmission medications with the addition of pain medications and aspirin for DVT prophylaxis. The patient will follow up as scheduled as an outpatient.
== END 2019-12-27 12:24 | disposition home or self-care (01) | DRG 483 ==
LOC: ASU 06:45 → 3E 13:12